=== PATIENT | female | born 1980 | race Caucasian/White ===

== ENCOUNTER 2017-04-22 11:10 | Outpatient (CLI) | payer BC ==
[2017-04-22 11:33] VITALS: BP 138/81
[2017-04-22] MEDS ORDERED: PRENATAL TABLE1 EAC3 PO (11:39)
[2017-04-22] MEDS ORDERED: FISH OIL 1,0001 EAC7 PO (11:40)
[2017-04-22] MEDS ORDERED: LEVO-T100 MCG PO (11:40)
[2017-04-22 12:00] VITALS: BP 133/76
[2017-04-22 12:35] VITALS: BP 127/84
[2017-04-22 12:54] LABS: UR CREATININE CONCENTRATION 70.5 MG/DL
[2017-04-22 12:55] LABS: EOSINOPHIL (%) 0.9 % (0-5); EOSINOPHIL COUNT 0.1 K/uL (0-0.3); IMMATURE GRANULOCYTE (%) 0.8 % (0.0-0.7); IMMATURE GRANULOCYTE COUNT 0.1 K/uL; INSTRUMENT ABS NEUTROPHIL CT 4.5 K/uL; LYMPHOCYTE COUNT 1.5 K/uL (1.0-2.8); MCH 28.8 PG (29.0-34.0); MCHC 34.3 G/DL (30.0-36.0); MCV 84.1 FL (83-99); MEAN PLAT.VOLUME 11.4 uM^3 (9.5-12.4); MONOCYTE (%) 5.9 % (3-12); MONOCYTE COUNT 0.4 K/uL (0-0.8); NEUTROPHIL (%) 69.1 % (45-76); NEUTROPHIL COUNT 4.5 K/uL (1.8-6.4); PLATELET COUNT 160 K/uL (156-360); RBC DIS.WIDTH-CV 13.6 % (11.8-14.6); RBC DIS.WIDTH-SD 42.3 % (39-53); RED BLOOD COUNT 4.16 M/uL (3.80-5.20); WHITE BLOOD COUNT 6.5 K/uL (4.1-10.2)
[2017-04-22 13:04] VITALS: BP 133/84
[2017-04-22 13:16] LABS: ANION GAP 10 MEQ/L (2-14); CHLORIDE 107 MEQ/L (99-109); POTASSIUM 3.9 MEQ/L (3.7-5.4); SAMPLE HEMOLYSIS CHECK 0; SAMPLE ICTERIC CHECK 0; SAMPLE LIPEMIA CHECK 0; SODIUM 137 MEQ/L (136-147); TOTAL BILIRUBIN 0.4 MG/DL (0.0-1.0)
[2017-04-22 13:22] LABS: ALKALINE PHOSPHATASE 83 IU/L (3-129); GFR ESTIMATE (CALCULATED) > 59 mL/min/; GLUCOSE 130 mg/dL (70-99); UREA NITROGEN (BUN) 8 mg/dL (9-23)
== END 2017-04-22 14:00 | disposition home or self-care (01) ==
LOC: LDRP-OP 11:10 → 2WEST 11:11 → LDRP-OP 06-26 15:35
PROVIDERS: Advanced Practice Midwife
DX: O13.3 Gestational [pregnancy-induced] hypertension without significant proteinuria, third trimester (principal); Z3A.35 35 weeks gestation of pregnancy; E03.9 Hypothyroidism, unspecified; O09.523 Supervision of elderly multigravida, third trimester
CPT/HCPCS: 59025; 80053; 82570; 84156; 85025; G0378

== ENCOUNTER 2017-05-11 10:12 | Outpatient (CLI) | payer BC ==
[2017-05-11] VITALS (7 sets, daily range): BP systolic 120–145; BP diastolic 73–87
[~2017-05-11] VITALS: Ht 170.2 cm; Wt 100.0 kg
[~2017-05-11 10:12] MED LIST: FISH OIL 1,0001 EAC7 PO; LEVO-T100 MCG PO; PRENATAL TABLE1 EAC3 PO
[2017-05-11 11:41] LABS: HEMATOCRIT 35.8 % (36.0-46.0); MCHC 34.6 G/DL (30.0-36.0); MCV 83.6 FL (83-99); MEAN PLAT.VOLUME 11.8 uM^3 (9.5-12.4); PLATELET COUNT 163 K/uL (156-360); RBC DIS.WIDTH-CV 13.9 % (11.8-14.6); RBC DIS.WIDTH-SD 41.9 % (39-53); RED BLOOD COUNT 4.28 M/uL (3.80-5.20)
[2017-05-11 11:46] LABS: UR CREATININE CONCENTRATION 39.6 MG/DL
[2017-05-11 12:02] LABS: ANION GAP 11 MEQ/L (2-14); CHLORIDE 107 MEQ/L (99-109); POTASSIUM 3.8 MEQ/L (3.7-5.4); SAMPLE HEMOLYSIS CHECK 0; SAMPLE ICTERIC CHECK 0; SAMPLE LIPEMIA CHECK 0; SODIUM 138 MEQ/L (136-147); TOTAL BILIRUBIN 0.3 MG/DL (0.0-1.0)
[2017-05-11 12:08] LABS: ALKALINE PHOSPHATASE 95 IU/L (3-129); GFR ESTIMATE (CALCULATED) > 59 mL/min/; GLUCOSE 88 mg/dL (70-99); UREA NITROGEN (BUN) 8 mg/dL (9-23)
== END 2017-05-11 12:59 | disposition home or self-care (01) ==
LOC: LDRP-OP 10:12 → 2WEST 10:13 → LDRP-OP 06-26 14:36
PROVIDERS: Obstetrics & Gynecology
DX: O26.893 Other specified pregnancy related conditions, third trimester (principal); Z3A.37 37 weeks gestation of pregnancy; O09.523 Supervision of elderly multigravida, third trimester
CPT/HCPCS: 59025; 80053; 82570; 84156; 85027; G0378

== ENCOUNTER 2017-05-14 11:42 | Outpatient (CLI) | payer BC ==
[2017-05-14 12:01] VITALS: BP 139/85
[2017-05-14 12:32] VITALS: BP 117/83
[2017-05-14 12:46] LABS: EOSINOPHIL (%) 1.2 % (0-5); EOSINOPHIL COUNT 0.1 K/uL (0-0.3); HEMATOCRIT 37.4 % (36.0-46.0); IMMATURE GRANULOCYTE (%) 1.5 % (0.0-0.7); IMMATURE GRANULOCYTE COUNT 0.1 K/uL; INSTRUMENT ABS NEUTROPHIL CT 4.3 K/uL; LYMPHOCYTE COUNT 2.1 K/uL (1.0-2.8); MCHC 33.4 G/DL (30.0-36.0); MCV 83.9 FL (83-99); MEAN PLAT.VOLUME 11.5 uM^3 (9.5-12.4); MONOCYTE (%) 4.2 % (3-12); MONOCYTE COUNT 0.3 K/uL (0-0.8); NEUTROPHIL (%) 62.8 % (45-76); NEUTROPHIL COUNT 4.3 K/uL (1.8-6.4); PLATELET COUNT 170 K/uL (156-360); RBC DIS.WIDTH-CV 13.9 % (11.8-14.6); RBC DIS.WIDTH-SD 42.1 % (39-53); RED BLOOD COUNT 4.46 M/uL (3.80-5.20); WHITE BLOOD COUNT 6.9 K/uL (4.1-10.2)
[2017-05-14 13:07] VITALS: BP 127/93
[2017-05-14 13:12] LABS: UR CREATININE CONCENTRATION 63.9 MG/DL
[2017-05-14 13:22] LABS: ALKALINE PHOSPHATASE 99 IU/L (3-129); ANION GAP 13 MEQ/L (2-14); CHLORIDE 104 MEQ/L (99-109); GFR ESTIMATE (CALCULATED) > 59 mL/min/; GLUCOSE 128 mg/dL (70-99); POTASSIUM 3.9 MEQ/L (3.7-5.4); SAMPLE HEMOLYSIS CHECK 0; SAMPLE ICTERIC CHECK 0; SAMPLE LIPEMIA CHECK 0; SODIUM 137 MEQ/L (136-147); UREA NITROGEN (BUN) 10 mg/dL (9-23)
[2017-05-14 13:23] LABS: TOTAL BILIRUBIN 0.4 MG/DL (0.0-1.0)
[2017-05-14 13:32] VITALS: BP 136/95
== END 2017-05-14 13:55 | disposition home or self-care (01) ==
LOC: LDRP-OP 11:42 → 2WEST 11:43 → LDRP-OP 06-24 13:03
PROVIDERS: Advanced Practice Midwife
DX: O13.3 Gestational [pregnancy-induced] hypertension without significant proteinuria, third trimester (principal); Z3A.38 38 weeks gestation of pregnancy
CPT/HCPCS: 59025; 80053; 82570; 84156; 85025; G0378

== ENCOUNTER 2017-05-16 07:16 | Inpatient (IN) | payer BC ==
[2017-05-16] VITALS (26 sets, daily range): BP systolic 128–179; BP diastolic 77–113
[~2017-05-16] VITALS: Ht 170.2 cm; Wt 100.2 kg
[2017-05-16 08:38] LABS: EOSINOPHIL (%) 1.5 % (0-5); EOSINOPHIL COUNT 0.1 K/uL (0-0.3); HEMATOCRIT 37.2 % (36.0-46.0); IMMATURE GRANULOCYTE (%) 1.5 % (0.0-0.7); IMMATURE GRANULOCYTE COUNT 0.1 K/uL; INSTRUMENT ABS NEUTROPHIL CT 4.9 K/uL; LYMPHOCYTE COUNT 2.1 K/uL (1.0-2.8); MCH 28.7 PG (29.0-34.0); MCHC 34.1 G/DL (30.0-36.0); MCV 84.2 FL (83-99); MEAN PLAT.VOLUME 11.3 uM^3 (9.5-12.4); MONOCYTE (%) 6.3 % (3-12); MONOCYTE COUNT 0.5 K/uL (0-0.8); NEUTROPHIL (%) 63.1 % (45-76); NEUTROPHIL COUNT 4.9 K/uL (1.8-6.4); PLATELET COUNT 162 K/uL (156-360); RBC DIS.WIDTH-SD 42.5 % (39-53); RED BLOOD COUNT 4.42 M/uL (3.80-5.20); WHITE BLOOD COUNT 7.8 K/uL (4.1-10.2)
[2017-05-16 09:02] LABS: UR CREATININE CONCENTRATION 68.1 MG/DL
[2017-05-16 09:08] LABS: ALKALINE PHOSPHATASE 102 IU/L (3-129); ANION GAP 9 MEQ/L (2-14); CHLORIDE 101 MEQ/L (99-109); GFR ESTIMATE (CALCULATED) > 59 mL/min/; LACTATE DEHYDROGENASE 117 IU/L (20-246); POTASSIUM 4.2 MEQ/L (3.7-5.4); SAMPLE HEMOLYSIS CHECK 0; SAMPLE ICTERIC CHECK 0; SAMPLE LIPEMIA CHECK 0; SODIUM 132 MEQ/L (136-147); UREA NITROGEN (BUN) 10 mg/dL (9-23); URIC ACID 6.4 mg/dL (3.1-9.2)
[2017-05-16 09:09] LABS: GLUCOSE 89 mg/dL (70-99); TOTAL BILIRUBIN 0.5 MG/DL (0.0-1.0)
[2017-05-17] VITALS (37 sets, daily range): BP systolic 125–172; BP diastolic 68–107
[2017-05-17 07:17] LABS: EOSINOPHIL (%) 0 % (0-5); HEMATOCRIT 34.4 % (36.0-46.0); IMMATURE GRANULOCYTE (%) 0.8 % (0.0-0.7); IMMATURE GRANULOCYTE COUNT 0.1 K/uL; INSTRUMENT ABS NEUTROPHIL CT 14.8 K/uL; MCH 29.4 PG (29.0-34.0); MCHC 34.6 G/DL (30.0-36.0); MCV 84.9 FL (83-99); MEAN PLAT.VOLUME 11.3 uM^3 (9.5-12.4); MONOCYTE (%) 4.3 % (3-12); MONOCYTE COUNT 0.7 K/uL (0-0.8); NEUTROPHIL (%) 88.9 % (45-76); NEUTROPHIL COUNT 14.8 K/uL (1.8-6.4); PLATELET COUNT 148 K/uL (156-360); RBC DIS.WIDTH-CV 14.3 % (11.8-14.6); RBC DIS.WIDTH-SD 43.8 % (39-53); RED BLOOD COUNT 4.05 M/uL (3.80-5.20); WHITE BLOOD COUNT 16.7 K/uL (4.1-10.2)
[2017-05-18] VITALS (9 sets, daily range): BP systolic 115–143; BP diastolic 65–88
[2017-05-19 02:16] VITALS: BP 139/85
[2017-05-19 06:28] VITALS: BP 133/85
[2017-05-19] MEDS ORDERED: TYLENOL EXTRA500 MG PO (10:18)
[2017-05-19] MEDS ORDERED: MOTRIN600 MG PO (10:19)
[2017-05-19 14:21] VITALS: BP 146/87
[2017-05-19 19:30] VITALS: BP 154/92
== END 2017-05-19 20:50 | disposition home or self-care (01) | DRG 775 ==
LOC: LDRP-OP 07:16 → 2WEST 07:17 → LDRP-OP 06-26 20:11
PROVIDERS: Obstetrics & Gynecology
DX: O70.0 First degree perineal laceration during delivery (principal); O14.14 Severe pre-eclampsia complicating childbirth; O75.89 Other specified complications of labor and delivery; O99.214 Obesity complicating childbirth; E66.9 Obesity, unspecified; O99.62 Diseases of the digestive system complicating childbirth; K21.9 Gastro-esophageal reflux disease without esophagitis; O99.824 Streptococcus B carrier state complicating childbirth; Z3A.38 38 weeks gestation of pregnancy; Z37.0 Single live birth
CPT/HCPCS: 59025; 80053; 82570; 83615; 83735; 84156; 84550; 85025; 86900; 86901; 93005; G0378; J0595; J2540; J2590; J3475; J7120